=== PATIENT | male | born 1975 | race Caucasian/White ===

== ENCOUNTER 2017-12-12 15:38 | Emergency (ER) | payer OTHER, SELFPAY ==
[2017-12-12 15:39] VITALS: BP 129/78; PULSE 72; RESP 16; TEMP 36.1; O2SAT 97; BMI 45.3
--- NOTE | 2017-12-12 15:54 | CT_ITS ---
STUDY: CT ABDOMEN AND PELVIS WITHOUT CONTRAST REASON FOR EXAM: Male, 42 years old. Left flank pain. Prior hernia repair. RADIATION DOSAGE (If Supplied By Facility): CTDIvol = ( 24.18 ) mGy, DLP = ( 1383.36 ) mGycm TECHNIQUE: Transaxial images were obtained from the dome of the diaphragm to the symphysis pubis without oral contrast, and without intravenous contrast. Sagittal and coronal images were reconstructed. Individualized dose optimization techniques were used for this CT. COMPARISON: None. FINDINGS: The visualized lung bases are unremarkable. The visualized portions of the heart are within normal limits. Normal liver. Normal gallbladder and extrahepatic biliary system. Normal spleen. Normal pancreas. Normal bilateral adrenal glands. Normal right kidney. Normal left kidney. Normal visualized stomach. Normal small intestine. There are multiple colonic diverticula consistent with diverticulosis. The appendix is visualized and appears normal. Normal abdominal aorta. Normal inferior vena cava. Normal retroperitoneum. Normal urinary bladder. There is a small umbilical hernia containing fat. There are diffuse degenerative changes of the visualized lumbar spine. CT/Abdomen/Pelvis without Cont IMPRESSION: No acute intra-abdominal process. Colonic diverticulosis. Electronically Signed: Maribel Grant MD at 16:37 EDT Tel , Service support ,
--- NOTE | 2017-12-12 15:56 | ED.VISSUMM ---
- ER Visit Summary Date of Service: 12/12/17 Chief Complaint: Left flank pain History of Present Illness: The patient is a 42 M with left flank pain since 940 this morning. Patient states he did not wake up with back pain. He does not have a known injury. He thinks he had a prior kidney stone when he was in college as he remembers lithotripsy. Physical Examination: Vital signs unremarkable. Patient's lying supine in the bed. He is in no acute distress. Heart is regular rate and rhythm. Lung sounds are clear. Abdomen is soft and nontender. Hypoactive bowel sounds are noted. Back examination was tenderness the left CVA region. Test Results: CBC and chemistry studies are unremarkable. Urinalysis was done at urgent care and normal. CT flank shows no acute process. There is evidence of colonic diverticulosis. Emergency Department Course and Treatment: Patient had been ordered pain and nausea medication, but he declined. He was given IV fluids. With negative workup for kidney stone, I did question whether he may have a PE in the left lower lobe causing his symptoms. D-dimer was sent and is normal at 0.3. On repeat evaluation patient is resting comfortably. He states his pain is improved but not completely resolved. He declines anything for pain at home. He will follow-up with his doctor in [place]. Treatment Plan: [] Disposition: Discharge Impression: Left flank pain, uncertain etiology This note was generated with [employer] dictation software. It may contain incorrect words, spelling, and punctuation that were not noted in review of the chart prior to signing ED Disposition - Plan for ED Patient: Chief Complaint: Flank Pain Referrals: Care Physician,No Primary [Primary Care Provider] -
[2017-12-12] MEDS: 0.9% Normal Saline 1,000 ML 250 ML IV (16:11)
[2017-12-12 16:27] LABS: Absolute Lymphocyte Count 2.72 X10^3/ul (0.83-4.51); Absolute Neutrophil Count 4.2 X10^3/uL (2.0-7.7); Basophil# 0.02 X10^3/uL; Basophil% 0.3 % (0-1); Eosinophil# 0.02 X10^3/uL; Eosinophils% 0.3 % (0-5); Hematocrit 42.5 % (40-54); Hemoglobin 13.9 g/dl (13.0-16.5); Lymphocyte # 2.72 X10^3/ul (4.0); Lymphocyte % 35.4 % (19-41); Mean Corp Hgb Conc 32.7 g/gl (32-36); Mean Corpuscular Hgb 26.7 pg (27.0-32.0); Mean Corpuscular Volume 81.7 fL (80-94); Mean Platelet Vol. 9.9 fl (6.2-12.0); Monocyte# 0.69 X10^3/uL; Neutrophil # 4.23 X10^3/uL (2.7-7.7); Neutrophil % 54.9 % (47-70); Platelet Count 270 K/mm3 (150-450); RBC Distribution Width CV 14.4 % (11.6-14.6); RBC Distribution Width SD 42.8 fl (35.1-43.9); White Blood Count 7.7 K/mm3 (4.4-11.0)
[2017-12-12 16:35] LABS: POSITIVE COUNT NO; POSITIVE DIFFERENTIAL NO; POSITIVE MORPHOLOGY NO
[2017-12-12 16:38] LABS: Anion Gap 9 (5-15); BUN 14 mg/dL (7-18); BUN/Creat Ratio 13.9 RATIO (10-20); Calcium,Total 8.6 mg/dL (8.5-10.1); Chloride 104 mmol/L (98-107); Creatinine, Serum 1.01 mg/dL (0.70-1.30); EST Glomerular Filtration Rate 86 mL/min (>60); Est Glom Filt Rate - Afr Amer 104 mL/min (>60); Estimated Creatinine Clearance 101.48 ml/min; Glucose 87 mg/dL (74-106); Potassium 4.1 mmol/L (3.5-5.1); Sodium Level 142 mmol/L (136-145)
--- NOTE | 2017-12-12 18:18 | ED.DEP ---
ED Disposition - Plan for ED Patient: Disposition: Home or Assisted Living Chief Complaint: Flank Pain Instructions: ED Flank Pain Uncertain Cause
== END 2017-12-12 18:49 | disposition home or self-care (01) ==
PROVIDERS: Emergency Provider Emergency Medicine
DX: R10.9 Unspecified abdominal pain (principal); K57.30 Diverticulosis of large intestine without perforation or abscess without bleeding; Z87.442 Personal history of urinary calculi
CPT/HCPCS: 74176; 80048; 85025; 85379; 96360; 96361; 99283; J7030; A4216

== ENCOUNTER 2017-12-15 13:43 | Emergency (ER) | payer OTHER, SELFPAY ==
[2017-12-15 13:43] VITALS: BP 142/72; PULSE 73; RESP 18; TEMP 36.6; O2SAT 98; BMI 46.0
--- NOTE | 2017-12-15 14:04 | CT_ITS ---
STUDY: CTA CHEST REASON FOR EXAM: Male, 42 years old. PAIN IN LT SHOULDER, ARM, NECK. RADIATION DOSAGE (If Supplied By Facility): CTDIvol = ( 20.05 ) mGy, DLP = ( 750.09 ) mGycm TECHNIQUE: The examination was performed with the intravenous administration of 100 ml of Isovue 370 contrast material. Post-processing of the angiographic images was performed, with multiplanar reformation and 3D reconstruction. Individualized dose optimization techniques were used for this CT. COMPARISON: None. FINDINGS: There is limited enhancement of the main pulmonary artery and right and left pulmonary arteries. There is limited enhancement of the bilateral peripheral pulmonary arteries. Normal thoracic aorta and visualized great vessels. There is no demonstrated aortic dissection. Normal heart and pericardium. Normal mediastinum. Normal hilar regions. Normal visualized trachea and bronchi. The lungs are well expanded. Normal pulmonary parenchyma. Normal pleura. Normal chest wall structures. There are degenerative changes of thoracic spine. Normal visualized upper abdomen. CT/CTA Chest W/WO Contrast IMPRESSION: No demonstrated large pulmonary embolism or arterial dissection. Electronically Signed: Paulette Carmona MD at 15:50 EDT Tel , Service support ,
--- NOTE | 2017-12-15 14:31 | ED.VISSUMM ---
- ER Visit Summary Date of Service: 12/15/17 Chief Complaint: [] Pain to the left parascapular back radiating down the arm and today History of Present Illness: The patient is a 42 M [] patient he was seen recently in the emergency department for left flank pain he had labs CT abdomen, d-dimer other workup labs are unremarkable he was to follow-up with physicians he woke today with pain in the left parascapular area range on his left arm, the flank pain has resolved he did not injure himself anyway he has had no history of NH PE or DVT he works as a bhagat, he indicates despite his job description he has not injured himself anyway and is concerned as to the migratory nature of this pain and what could be causing Physical Examination: [] Very large gentleman he points directly to the left parascapular area as the focus of his pain head neck unremarkable full range of motion the lungs are clear the heart tones are unremarkable the abdomen soft slightly obese but nontender he has full range of motion of the upper lower extremities there is no sinus clubbing or edema there are strong pulses bilaterally he has a vague pain to palpation over the left scapula but there is no redness no evans no signs of rash he has full range of motion of left shoulder and again full range of motion full function left upper extremity with normal neurovascular functional exam he has no joint pain or joint swelling anywhere Test Results: [] Emergency Department Course and Treatment: [] Given all the above his complaints repeat visits to the emergency department screening labs are obtained EKG troponin CT of chest Patient's EKG labs troponin are all generally unremarkable see those reports, the CT of the chest per radiology shows no signs of large pulmonary embolism or dissection, the d-dimer the other day was negative I explained all the above the patient is of explained exact etiology of his symptoms are unclear there is no signs at this time based on evaluation and workup of a dissection PE pneumonia or anything acute or life-threatening they understand the need for close outpatient follow-up, at this time will be started on Naprosyn he will follow-up with his primary care physicians and return for change in symptoms Treatment Plan: [] Disposition: [] Home stable Impression: [] Left parascapular pain etiology unclear This note was generated with [employer] software. It may contain incorrect words, spelling, and punctuation that were not noted in review of the chart prior to signing ED Disposition - Plan for ED Patient: Chief Complaint: Upper Extremity Injury Referrals: Care Physician,No Primary [Primary Care Provider] -
[2017-12-15] MEDS: 0.9% Normal Saline 1,000 ML 999 ML IV (14:36)
[2017-12-15 14:51] LABS: Absolute Lymphocyte Count 2.56 X10^3/ul (0.83-4.51); Absolute Neutrophil Count 4.2 X10^3/uL (2.0-7.7); Basophil# 0.02 X10^3/uL; Basophil% 0.3 % (0-1); Eosinophil# 0.07 X10^3/uL; Eosinophils% 0.9 % (0-5); Hematocrit 42.9 % (40-54); Lymphocyte # 2.56 X10^3/ul (4.0); Lymphocyte % 34.6 % (19-41); Mean Corp Hgb Conc 32.6 g/gl (32-36); Mean Corpuscular Hgb 26.8 pg (27.0-32.0); Mean Corpuscular Volume 82.2 fL (80-94); Mean Platelet Vol. 9.9 fl (6.2-12.0); Monocyte# 0.58 X10^3/uL; Monocyte% 7.8 % (0-10); Neutrophil # 4.15 X10^3/uL (2.7-7.7); Neutrophil % 56.3 % (47-70); Platelet Count 260 K/mm3 (150-450); RBC Distribution Width CV 14.3 % (11.6-14.6); RBC Distribution Width SD 42.7 fl (35.1-43.9); Red Blood Count 5.22 M/mm3 (4.6-6.2); White Blood Count 7.4 K/mm3 (4.4-11.0)
[2017-12-15 14:56] LABS: POSITIVE COUNT NO; POSITIVE DIFFERENTIAL NO; POSITIVE MORPHOLOGY NO
[2017-12-15 15:03] LABS: Anion Gap 5 (5-15); BUN 15 mg/dL (7-18); BUN/Creat Ratio 14.2 RATIO (10-20); Calcium,Total 8.9 mg/dL (8.5-10.1); Chloride 104 mmol/L (98-107); Creatinine, Serum 1.06 mg/dL (0.70-1.30); EST Glomerular Filtration Rate 81 mL/min (>60); Est Glom Filt Rate - Afr Amer 98 mL/min (>60); Estimated Creatinine Clearance 96.69 ml/min; Glucose 79 mg/dL (74-106); Potassium 4.1 mmol/L (3.5-5.1); Sodium Level 139 mmol/L (136-145)
--- NOTE | 2017-12-15 15:59 | ED.DEP ---
ED Disposition - Plan for ED Patient: Chief Complaint: Upper Extremity Injury Instructions: ED Chest Pain Atypical Unkn Cause, ED Cervical Radiculopathy Prescriptions: Naproxen [Naprosyn] 500 mg PO BID #14 tab Referrals: Care Physician,No Primary [Primary Care Provider] -
--- NOTE | 2017-12-15 16:01 | ED.DEP ---
ED Disposition - Plan for ED Patient: Chief Complaint: Upper Extremity Injury Instructions: ED Chest Pain Atypical Unkn Cause, ED Cervical Radiculopathy Prescriptions: Naproxen [Naprosyn] 500 mg PO BID #14 tab Referrals: Care Physician,No Primary [Primary Care Provider] - Edgar Mejia MD [STAFF PHYSICIAN] -
[2017-12-15 16:06] VITALS: BP 154/76; PULSE 69; PULSE 76; RESP 16; O2SAT 98
== END 2017-12-15 16:12 | disposition home or self-care (01) ==
PROVIDERS: Emergency Provider Emergency Medicine
DX: M25.512 Pain in left shoulder (principal)
CPT/HCPCS: 71275; 80048; 84484; 85025; 93005; 96360; 96361; 99283; J7030; Q9967

== ENCOUNTER 2019-05-20 09:14 | Emergency (ER) | payer OTHER, SELFPAY ==
[2019-05-20 09:16] VITALS: BP 151/79; PULSE 80; RESP 17; TEMP 37.6; O2SAT 96; BMI 46.3
--- NOTE | 2019-05-20 09:42 | ED.DCSUM_ITS ---
History of Present Illness Chief Complaint: Abd Pain Informant: Patient Onset: Days - 3 days Context: Gradual Onset Current Severity: Moderate Maximum Severity: Moderate Narrative: Patient presents secondary to abdominal pain. He states last Tuesday evening he developed body aches with chills. The next evening he started getting diarrhea and had significant diarrhea on Tuesday. He took 1 tab of Imodium which is essentially stopped his diarrhea. He states he is rarely passing gas. He feels bloated. He feels like he has a lot of abdominal cramping. He has had nausea but no vomiting. He is complaining of lower abdominal pain, worse in the left lower quadrant. No known history of diverticulitis. - Past Medical History (1) History of appendectomy Status: Chronic Past Medical History - Allergies and Home Meds Allergies/Adverse Reactions: Allergies No Known Allergies Allergy (Verified 05/20/19 09:15) Primary Care Physician: Anabel Alvarado DO [Primary Care Provider] - Surgical History: appendectomy Lives: Spouse/ Significant Other Smoking Status: Never smoker Review of Systems General: Reports: Chills. Denies: Fever Eyes: Denies: Visual changes - bilaterally ENT: Denies: Bilateral ear pain Cardiovascular: Denies: Chest pain Respiratory: Denies: Dyspnea, Cough Gastrointestinal: Reports: Abdominal pain, Nausea, Diarrhea - Resolved. Denies: Vomiting Genitourinary: Denies: Dysuria Musculoskeletal: Reports: Myalgias Skin: Denies: Rash Neurological: Denies: Headache Allergy: Denies: Uticaria Physical Exam Vital Signs/Narrative: Vital Signs Temp Pulse Resp BP Pulse Ox 05/20/19 09:16 99.6 F H 80 17 151/79 H 96 Inital Vital Signs reviewed: Yes General: Well nourished, Well developed Head: Normocephalic ENT: Moist mucous membranes Neck: Supple Cardiovascular: Regular rate, Regular rhythm Respiratory: No distress, CTA bilaterally Abdomen: Soft, Tender - Mild lower abdominal tenderness, worse in the left lower quadrant., Hypoactive bowel sounds. Negative for: Guarding, Rebound tenderness Extremities: Nontender Skin: Normal color Neurological: Alert, Oriented x3 Psychological: Normal affect Diagnostic/Tx/Re-eval Impressions Abdomen/Pelvis CT 05/20/19 09:42 IMPRESSION: Diffuse thickening of the colon as described above consistent with colitis. Electronically Signed: Ji Asher MD at 11:51 EST Tel , Service support , 05/20/19 09:42 Abdomen/Pelvis WITH Contrast [CT] Stat Laboratory Results 05/20/19 05/20/19 05/20/19 09:18 10:00 10:00 WBC 5.6 RBC 5.44 Hgb 15.5 Hct 46.2 MCV 84.9 MCH 28.5 MCHC 33.5 RDW Std Deviation 39.8 RDW Coeff of [place] 12.9 Plt Count 240 MPV 9.9 Immature Gran % (Auto) 0.500 Neut % (Auto) 67.3 Lymph % (Auto) 20.6 [place] % (Auto) 11.4 H Eos % (Auto) 0.0 Baso % (Auto) 0.2 Absolute Neuts (auto) 3.8 Absolute Lymphs (auto) 1.16 Nucleated RBC % 0 Differential Comment SCANNED Sodium 136 Potassium 4.1 Chloride 101 Carbon Dioxide 30.0 Anion Gap 5 BUN 13 Creatinine 1.20 Estim Creat Clear Calc 87.12 Est GFR (MDRD) Af Amer 85 Est GFR (MDRD) Non-Af 70 BUN/Creatinine Ratio 10.8 Glucose 89 Calcium 8.8 Total Bilirubin 0.30 Direct Bilirubin 0.12 AST 17 ALT 40 Alkaline Phosphatase 82 Total Protein 7.2 Albumin 3.5 Globulin 3.7 Lipase 85 Urine Color Yellow Urine Clarity Clear Urine pH 6.0 Ur Specific [place] 1.020 Urine Protein 15 H Urine Glucose (UA) Normal Urine Ketones 5 H Urine Occult Blood 10 H Urine Nitrite Negative Urine Bilirubin Negative Urine Urobilinogen Normal Ur Leukocyte Esterase Negative Urine RBC 0-5 SEEN Urine WBC 0 SEEN Ur Squamous Epith Cells 0 SEEN Urine Bacteria 1+ Urine Mucus 1+ - Medical Decision Making Patient was given morphine, Zofran, and Bentyl here. On repeat evaluation he is resting comfortably. Test results are discussed with patient significant other at bedside. He will be treated with Cipro and Flagyl. I will also write him for some Bentyl to help with abdominal cramping. ED Disposition - Plan for ED Patient: Disposition: Home or Assisted Living Diagnosis: Colitis Instructions: Bacterial Gastroenteritis Prescriptions: Dicyclomine HCl [Bentyl] 20 mg PO TIDAC #20 cap Transmission Status: Pending to [id number] Ciprofloxacin [Cipro] 500 mg PO BID #20 tab Transmission Status: Pending to [id number] metroNIDAZOLE [Flagyl] 500 mg PO Q6H #40 tab Transmission Status: Pending to [id number] Referrals: Anabel Alvarado DO [Primary Care Provider] - 1 Week
--- NOTE | 2019-05-20 09:42 | CT_ITS ---
STUDY: CT ABDOMEN AND PELVIS WITH CONTRAST REASON FOR EXAM: Male, 43 years old. Abdominal pain, nausea and diarrhea. RADIATION DOSAGE (If Supplied By Facility): CTDIvol = ( 17.07 ) mGy, DLP = ( 1332.44 ) mGycm TECHNIQUE: Transaxial images were obtained from the dome of the diaphragm to the symphysis pubis without oral contrast. Oral and amp; IV Gastrografin and amp; 100mL Isovue-300 was administered. Sagittal and coronal images were reconstructed. Individualized dose optimization techniques were used for this CT. COMPARISON: 12/12/2017. FINDINGS: The visualized portions of lung bases demonstrate mild scarring in the right lower lobe. The visualized portions of the heart are within normal limits. Normal liver. Normal gallbladder and extrahepatic biliary system. Normal spleen. Normal pancreas. Normal bilateral adrenal glands. Normal right kidney. Normal left kidney. Normal visualized stomach. There are fluid-filled slightly prominent small bowel loops on the left side of the abdomen. There is no evidence of small bowel obstruction. There is diffuse thickening of the colon extending from the hepatic flexure to the region of the rectosigmoid junction consistent with diffuse colitis. The appendix is visualized and appears unremarkable. There is however densities adjacent to the pelvis which could be appendicolith or surgical clips. Normal abdominal aorta. Normal inferior vena cava. Normal retroperitoneum. Normal urinary bladder. There is a small umbilical hernia containing fat. The osseous structures demonstrate no acute changes. CT/Abdomen/Pelvis WITH Contrast IMPRESSION: Diffuse thickening of the colon as described above consistent with colitis. Electronically Signed: Ji Asher MD at 11:51 EST Tel , Service support ,
[2019-05-20 09:51] LABS: Squamous Epithelial Cells - UA 0 SEEN /hpf (0-5); White Blood Cells 0 SEEN /hpf (0-5)
[2019-05-20 09:52] LABS: Color, Urine Yellow (Yellow); Glucose, Dipstick Normal (Normal); Ketone-Dipstick 5 mg/dl (Negative); Leukocyte Esterase-Dipstick Negative /ul (Negative); Nitrite-Dipstick Negative (Negative); Occult Blood-Urine 10 /ul (Negative); Protein-Dipstick 15 mg/dl (Negative); Urine Bilirubin Dipstick Negative (Negative); Urine Clarity Clear (Clear); Urine Urobilinogen Normal (Normal)
[2019-05-20] MEDS: Ondansetron 4 MG/2 ML Vial IV (10:00)
[2019-05-20 10:01] LABS: Bacteria 1+ /hpf (None Seen); Mucous, Urine 1+ /hpf (<or=2+); Red Blood Cells-Urine 0-5 SEEN /hpf (0-5)
[2019-05-20] MEDS: Dicyclomine 20 MG/2 ML Vial IM (10:04)
[2019-05-20] MEDS: 0.9% Normal Saline 1,000 ML 150 ML IV (10:08)
[2019-05-20 10:14] LABS: Absolute Lymphocyte Count 1.16 X10^3/uL (0.83-4.51); Absolute Neutrophil Count 3.8 X10^3/uL (2.0-7.7); Basophil# 0.01 X10^3/uL; Basophil% 0.2 % (0-1); Hematocrit 46.2 % (40-54); Hemoglobin 15.5 g/dL (13.0-16.5); Lymphocyte # 1.16 X10^3/ul (4.0); Lymphocyte % 20.6 % (19-41); Mean Corp Hgb Conc 33.5 g/dL (32-36); Mean Corpuscular Hgb 28.5 pg (27.0-32.0); Mean Corpuscular Volume 84.9 fL (80-94); Mean Platelet Vol. 9.9 fl (6.2-12.0); Monocyte# 0.64 X10^3/uL; Monocyte% 11.4 % (0-10); NRBC Flagged by Analyzer 0 % (0-5); Neutrophil # 3.79 X10^3/uL (2.7-7.7); Neutrophil % 67.3 % (47-70); POSITIVE MORPHOLOGY YES; Platelet Count 240 K/mm3 (150-450); RBC Distribution Width CV 12.9 % (11.6-14.6); RBC Distribution Width SD 39.8 fl (35.1-43.9); Red Blood Count 5.44 M/mm3 (4.6-6.2); White Blood Count 5.6 K/mm3 (4.4-11.0)
[2019-05-20 10:15] LABS: Differential Indicated SCAN CRITERIA MET
[2019-05-20 10:26] LABS: AST(SGOT) 17 U/L (15-37); Alanine Aminotransfer ALT/SGPT 40 U/L (16-61); Albumin, Serum 3.5 g/dL (3.2-5.0); Alkaline Phosphatase 82 U/L (45-117); Anion Gap 5 (5-15); BUN 13 mg/dL (7-18); BUN/Creat Ratio 10.8 RATIO (10-20); Bilirubin, Direct 0.12 mg/dL (0.00-0.30); Calcium,Total 8.8 mg/dL (8.5-10.1); Chloride 101 mmol/L (98-107); EST Glomerular Filtration Rate 70 mL/min (>60); Est Glom Filt Rate - Afr Amer 85 mL/min (>60); Estimated Creatinine Clearance 87.12 ml/min; Globulin 3.7 g/dL (2.2-4.2); Glucose 89 mg/dL (74-106); Lipase 85 U/L (73-393); Potassium 4.1 mmol/L (3.5-5.1); Protein, Total 7.2 g/dL (6.4-8.2); Sodium Level 136 mmol/L (136-145)
[2019-05-20 10:31] LABS: Differential Comment SCANNED
[2019-05-20] MEDS: metroNIDAZOLE 500 MG Tablet PO (12:13)
[2019-05-20] MEDS: Ciprofloxacin 500 MG Tablet PO (12:13)
[2019-05-20 12:23] VITALS: BP 141/91; PULSE 83; RESP 16; O2SAT 97
== END 2019-05-20 12:24 | disposition home or self-care (01) ==
PROVIDERS: Emergency Provider Emergency Medicine
DX: K52.9 Noninfective gastroenteritis and colitis, unspecified (principal)
CPT/HCPCS: 74177; 80048; 80076; 81001; 83690; 85025; 96361; 96372; 96374; 99283; J7030; Q9967; A4216; J2405

== ENCOUNTER → 2023-11-02 | Outpatient (CLI) | payer OTHER, SELFPAY | END | disposition home or self-care (01) | LOC: SL 08:28 | PROVIDERS: Referring Provider Otolaryngology Otolaryngology/Facial Plastic Surgery; Visit Provider Otolaryngology Otolaryngology/Facial Plastic Surgery | DX: G47.10 Hypersomnia, unspecified (principal) | CPT/HCPCS: 95806 ==

== ENCOUNTER → 2023-11-17 | Outpatient (CLI) | payer OTHER, SELFPAY | END | disposition home or self-care (01) | LOC: SL 10:47 | PROVIDERS: Visit Provider Internal Medicine Sleep Medicine | DX: G47.33 Obstructive sleep apnea (adult) (pediatric) (principal) ==

== ENCOUNTER → 2023-11-21 | Outpatient (CLI) | payer OTHER, SELFPAY | END | disposition home or self-care (01) | LOC: SL 11:01 | PROVIDERS: Visit Provider Nurse Practitioner Acute Care | DX: J34.89 Other specified disorders of nose and nasal sinuses (principal) ==

== ENCOUNTER → 2024-01-12 | Outpatient (CLI) | payer OTHER, SELFPAY | END | disposition home or self-care (01) | LOC: LABSPEC 15:13 | PROVIDERS: Referring Provider Otolaryngology; Visit Provider Otolaryngology | DX: J32.9 Chronic sinusitis, unspecified (principal) | CPT/HCPCS: 87070; 87077; 87186; 87205 ==

== ENCOUNTER → 2024-04-25 | Outpatient (CLI) | payer OTHER, SELFPAY | END | disposition home or self-care (01) | LOC: LABSPEC 15:28 | PROVIDERS: Referring Provider Otolaryngology Otolaryngology/Facial Plastic Surgery; Visit Provider Otolaryngology Otolaryngology/Facial Plastic Surgery | DX: J02.9 Acute pharyngitis, unspecified (principal) | CPT/HCPCS: 87070; 87077; 87186 ==